=== PATIENT | male | born 1965 | race Caucasian/White ===

== ENCOUNTER 2018-01-21 01:04 | Emergency (ER) | payer OTHER ==
[~2018-01-21] VITALS: Ht 188 cm; Wt 103.4 kg
[~2018-01-21 01:04] MED LIST: ATIVAN1 MG PO; ENALAPRIL MALEAT5 MG PO; HYDROCHLOROTHIA25 MG; PRI20 PO; V5 PO; ZOF4 PO
[2018-01-21 01:14] VITALS: Ht 188 cm; Wt 103.4 kg
[2018-01-21 02:57] VITALS: BP 142/106
== END 2018-01-21 02:57 | disposition home or self-care (01) ==
LOC: ED 01:04
DX: I83.892 Varicose veins of left lower extremity with other complications (principal); I10 Essential (primary) hypertension
CPT/HCPCS: 90714; J2001

== ENCOUNTER 2018-02-01 09:43 | Emergency (ER) | payer OTHER ==
[~2018-02-01] VITALS: Ht 188 cm; Wt 105.2 kg
[2018-02-01 09:51] VITALS: Ht 188 cm; Wt 105.2 kg
[2018-02-01 13:40] VITALS: BP 184/129
== END 2018-02-01 13:40 | disposition home or self-care (01) ==
LOC: ED 09:43
DX: L03.116 Cellulitis of left lower limb (principal); I10 Essential (primary) hypertension

== ENCOUNTER 2018-02-03 11:32 | Emergency (ER) | payer OTHER ==
[~2018-02-03] VITALS: Ht 188 cm; Wt 103.4 kg
[2018-02-03 11:40] VITALS: BP 144/108; Ht 188 cm; Wt 103.4 kg
== END 2018-02-03 14:27 | disposition home or self-care (01) ==
LOC: ED 11:32
DX: L03.116 Cellulitis of left lower limb (principal); I10 Essential (primary) hypertension